=== PATIENT | female | born 1985 | race Caucasian/White ===

== ENCOUNTER 2017-09-20 19:30 | Emergency (ER) | payer OTHER ==
[2017-09-20 19:39] VITALS: BP 122/67; PULSE 79; TEMP 97.3; BMI 52.1
[2017-09-20] MEDS ORDERED: IBUPROFEN 600 MG TABLET (FP) PO ONE ×2 (19:46→19:48)
--- NOTE | 2017-09-20 19:46 | PDOC ---
History of Present Illness - General History Source: Patient Exam Limitations: No Limitations - History of Present Illness Initial Comments: 09/20/17 19:57 The patient is a 32 year old female with no significant past medical history, who presents to the emergency department with pain and bruising to her left first toe. She reportedly fell down the same couple of steps twice today at home. She denies chest pain, shortness of breath, headache and dizziness. She denies fever, chills, nausea, vomit, diarrhea and constipation. She denies dysuria, frequency, urgency and hematuria. PAST MEDICAL HISTORY: no significant history PAST SURGICAL HISTORY: no significant history FAMILY HISTORY: no pertinent history SOCIAL HISTORY: Pt lives with family and is employed. MEDICATIONS: reviewed ALLERGIES: As per nursing notes ROS General: No fevers or chills, no weakness, no weight loss HEENT: No change in vision. No sore throat,. No ear pain CardioVascular: No chest pain or shortness of breath Respiratory:No cough, or wheezing. Gastrointestinal: no nausea, vomiting, diarrhea or constipation, No rectal bleeding Genitourinary: No dysuria, hematuria, or frequency Musculoskeletal: (+) pain and bruising to left great toe. No muscle pain or swelling Neurologic: No headache, vertigo, dizziness or loss of consciousness Psychiatric: nor depression Skin: (+) bruising to left great toe. No rashes. Endocrine: no increased thirst or abnormal weight change Allergic: no skin or latex allergy All other systems reviewed and normal Physical Exam GENERAL: The patient is awake, alert, and fully oriented, in no acute distress. HEAD: Normal with no signs of trauma. EYES: Pupils equal, round and reactive to light, extraocular movements intact, sclera anicteric, conjunctiva clear. EXTREMITIES: (+) Left great toe is moderately swollen with ecchymosis and tenderness to palpation diffusely. No bony deformities. Normal range of motion. NEUROLOGICAL: Normal speech, normal gait. PSYCH: Normal mood, normal affect. SKIN: Warm, Dry, normal turgor, no rashes or lesions noted. <Radha Calvert - Last Filed: 09/20/17 19:57> - General History Source: Patient Exam Limitations: No Limitations - History of Present Illness Initial Comments: X-ray no fracture dislocation 09/20/17 20:50 Assessment and plan: This is a 32-year-old female who stubbed her left great toe and comes in complaining of pain in the toe. Patient had an x-ray that was negative for any acute fractures or dislocations. Patient toe was guido taped to the toe next to it she was given some ibuprofen and discharged. <Micaela Ayala I - Last Filed: 09/20/17 20:52> - General Chief Complaint: Injury Stated Complaint: LEFT BIG TOE INJURY Time Seen by Provider: 09/20/17 19:34 Past History <Radha Calvert - Last Filed: 09/20/17 19:57> <Micaela Ayala I - Last Filed: 09/20/17 20:52> - Past Medical History Allergies/Adverse Reactions: Allergies Allergy/AdvReac Type Severity Reaction Status Date / Time No Known Drug Allergies Allergy Verified 09/20/17 19:34 Home Medications: Ambulatory Orders Acetaminophen [Tylenol -] 1,000 mg PO ONCE 09/20/17 Norgestimate-Ethinyl Estradiol [Tri-Previfem Tablet] 1 each PO ASDIR 09/20/17 Pantoprazole Sodium 40 mg PO DAILY 09/20/17 *Physical Exam - Vital Signs Last Vital Signs Temp Pulse Resp BP Pulse Ox 97.3 F L 79 18 122/67 98 09/20/17 19:30 09/20/17 19:30 09/20/17 19:30 09/20/17 19:30 09/20/17 19:30 <Radha Calvert - Last Filed: 09/20/17 19:57> *DC/Admit/Observation/Transfer - Attestations Scribe Attestion: 09/20/17 19:58 Documentation prepared by Radha Calvert, acting as expert medical writer for Micaela Ayala MD <Radha Calvert - Last Filed: 09/20/17 19:57> - Discharge Dispostion Admit: No <Micaela Ayala I - Last Filed: 09/20/17 20:52> Diagnosis at time of Disposition: Sprain of left great toe Qualifiers: Encounter type: initial encounter Qualified Code(s): S93.502A - Unspecified sprain of left great toe, initial encounter - Discharge Dispostion Disposition: HOME Condition at time of disposition: Stable - Patient Instructions Additional Instructions: Tylenol or Motrin as needed for pain. Guido tape the toe to the toe next to it. Wear the cast shoe as needed for comfort, Return to the emergency department immediately with ANY new, persistent or worsening symptoms. Continue any medications as previously prescribed by your physician. You should follow up with your primary doctor as soon as possible regarding today's emergency department visit. . Please make sure your doctor reviews the results of your emergency evaluation. Thank you for coming to the Emergency Department today for your care. It was a pleasure to see you today. Please note that your evaluation is INCOMPLETE until you follow-up with your doctor.
== END 2017-09-20 21:14 | disposition home or self-care (01) ==
LOC: FER 19:30
PROC: 2W3VXYZ Immobilization of Left Toe using Other Device (ICD-10-PCS; principal; 2017-09-20)
DX: S93.502A Unspecified sprain of left great toe, initial encounter (principal); X58.XXXA Exposure to other specified factors, initial encounter; Y93.89 Activity, other specified; Y92.9 Unspecified place or not applicable
CPT/HCPCS: 73660-TC; 84703; 99282-25

== ENCOUNTER 2020-09-27 21:06 | Emergency (ER) | payer OTHER | END 2020-09-28 02:17 | disposition home or self-care (01) | LOC: JER 21:06 | DX: Z46.89 Encounter for fitting and adjustment of other specified devices (principal) | CPT/HCPCS: 99282-25 ==

== ENCOUNTER 2022-01-01 19:21 | Emergency (ER) | payer MEDICARE, OTHER ==
[2022-01-01] MEDS ORDERED: ACETAMINOPHEN 500 MG TABLET (FP) PO ONE (19:29)
[2022-01-01] MEDS ORDERED: ACETAMINOPHEN 500 MG TABLET (FP) ONE (19:41)
[2022-01-01 19:42] VITALS: BP 116/69; PULSE 71; TEMP 98.4; BMI 39.9
== END 2022-01-01 21:24 | disposition home or self-care (01) ==
LOC: FER 19:21
DX: S06.0X0A Concussion without loss of consciousness, initial encounter (principal); W22.8XXA Striking against or struck by other objects, initial encounter
CPT/HCPCS: 70450-TC; 81025; 99284-25